=== PATIENT | male | born 1985 | race Two or more races ===

== ENCOUNTER 2019-05-07 11:43 | Emergency (ER) | payer SELFPAY ==
[~2019-05-07] VITALS: Ht 167.6 cm; Wt 81.6 kg
--- NOTE | 2019-05-07 12:00 | NUR ---
came to er complaints of sever flank pain x 2 days hx of lidney stone
[2019-05-07 12:15] VITALS: BP 122/76
[2019-05-07] MEDS ORDERED: Ketorolac 30mg Inj IV ONE (12:15)
[2019-05-07 12:17] LABS: APPEARANCE,URINE CLEAR; BILIRUBIN, URINE NEGATIVE (NEGATIVE); COLOR,URINE PALE YELLOW; GLUCOSE, URINE (UA) 4+ (NEGATIVE); KETONES,URINE NEGATIVE (NEGATIVE); LEUKOCYTE ESTERASE ,URINE NEGATIVE (NEGATIVE); NITRITE,URINE NEGATIVE (NEGATIVE); PH,URINE 8 (4.5-8.0); PROTEIN,URINE NEGATIVE (NEGATIVE); UROBILINOGEN,URINE NORMAL MG/DL (0.0-1.0)
[2019-05-07 12:19] LABS: BASOPHILS % (AUTO) 3.1 % (0.0-2.0); EOSINOPHILS % (AUTO) 0.8 % (0.0-3.0); HEMATOCRIT 38.5 % (42.0-52.0); HEMOGLOBIN 12.3 G/DL (14.2-18.0); LYMPHOCYTES % (AUTO) 40.1 % (20.0-45.0); MEAN CORPUSCULAR VOLUME 88 FL (80-99); MONOCYTES % (AUTO) 7.3 % (1.0-10.0); NEUTROPHILS % (AUTO) 48.6 % (45.0-75.0); PLATELET COUNT 416 K/UL (150-450); RED BLOOD COUNT 4.36 M/UL (4.70-6.10); RED CELL DISTRIBUTION WIDTH 15.8 % (11.6-14.8); WHITE BLOOD COUNT 6.1 K/UL (4.8-10.8)
--- NOTE | 2019-05-07 12:20 | NUR ---
meds given as orderd
[2019-05-07 12:30] LABS: ANION GAP 9 mmol/L (5-15); BLOOD UREA NITROGEN 6 mg/dL (7-18); CALCIUM 8.8 MG/DL (8.5-10.1); CARBON DIOXIDE 26 MMOL/L (21-32); CHLORIDE 102 MMOL/L (98-107); CREATININE 0.9 MG/DL (0.55-1.30); POTASSIUM 3.7 MMOL/L (3.5-5.1); SODIUM 137 MMOL/L (136-145)
--- NOTE | 2019-05-07 12:30 | NUR ---
ED Nurse Note: received pt. pt lying in bed comfortably. intermittent facial grimacing noted. pt walked in to ED due to right flank pain for 2 days with blood in urine. hx of kidney stone. AAO x4. respirations even and non-labored noted. skin warm to touch. no open wound noted. on cardiac cath technician. will wait for the further order.
[2019-05-07 12:33] LABS: ALANINE AMINOTRANSFERASE 79 U/L (12-78); ALBUMIN 3.7 G/DL (3.4-5.0); ALBUMIN/GLOBULIN RATIO 1.1 (1.0-2.7); ALKALINE PHOSPHATASE 132 U/L (46-116); ASPARTATE AMINO TRANSFERASE 40 U/L (15-37); BILIRUBIN,TOTAL 0.2 MG/DL (0.2-1.0)
[2019-05-07 13:00] VITALS: BP 119/77
--- NOTE | 2019-05-07 13:30 | NUR ---
ED Nurse Note: pt c/o pain wants more pain meds. Dr. Williamson notified. will wait for the further order.
[2019-05-07 14:00] VITALS: BP 130/89
[2019-05-07] MEDS ORDERED: Morphine Sulfate 4mg/ml Inj (IV USE ONLY) IVP ONE (14:00)
[2019-05-07] MEDS ORDERED: HYDROcodone/Acetamin 5/325 tab ORAL ONE ×2 (14:00→17:30)
--- NOTE | 2019-05-07 14:49 | NUR ---
ED Nurse Note: pt requested ativan. per pt, " I am shaking, I am having withdraw sx." per pt, alcohol abuse and last drink was yesterday. Dr. Williamson notified.
[2019-05-07] MEDS ORDERED: METFORMIN HCL500 M1 ORAL (15:41)
[2019-05-07] MEDS ORDERED: GLIPIZIDE5 MG ORAL (15:41)
--- NOTE | 2019-05-07 15:44 | Emergency Room Report ---
History of Present Illness General Chief Complaint: Abdominal Pain Source: Patient Present Illness [facility] This patient complains of right-sided flank and abdominal pain for the past 4 hours. He states he also noted hematuria. He believes he has a kidney stone. He states he has them in the past and usually needs Dilaudid. He denies fever chills. He denies nausea and vomiting. He has no other complaints. Allergies: Coded Allergies: No Known Allergies (Unverified , 05/07/19) Patient History Past Medical History: DM Social History: Denies: smoking, alcohol use, drug use Reviewed Nursing Documentation: PMH: Agreed; PSxH: Agreed Nursing Documentation-PMH Hx Diabetes: Yes Review of Systems All Other Systems: negative except mentioned in HPI Physical Exam Vital Signs Date Time Temp Pulse Resp B/P (MAP) Pulse Ox O2 Delivery O2 Flow Rate FiO2 05/07/19 11:56 98.1 86 16 150/80 (103) 98 Room Air Sp02 EP Interpretation: reviewed, normal General Appearance: no apparent distress, alert, GCS 15, non-toxic Head: normocephalic, atraumatic Eyes: bilateral eye normal inspection, bilateral eye PERRL ENT: hearing grossly normal, normal pharynx, no angioedema, normal voice Neck: full range of motion, supple/symm/no masses Respiratory: chest non-tender, lungs clear, normal breath sounds, no respiratory distress, no retraction, no accessory muscle use, speaking full sentences Cardiovascular #1: regular rate, rhythm, no edema Gastrointestinal: normal bowel sounds, soft, non-distended, no guarding, no rebound, tenderness - TTP in the RLQ Rectal: deferred Musculoskeletal: back normal, gait/station normal, normal range of motion, non- tender Neurologic: alert, oriented x3, responsive, motor strength/tone normal, sensory intact, speech normal Psychiatric: judgement/insight normal, memory normal, mood/affect normal, no suicidal/homicidal ideation Skin: no rash, normal color Medical Decision Making Diagnostic Impression: Primary Impression: Hyperglycemia Additional Impression: Uncontrolled diabetes mellitus Laboratory Tests Test 05/07/19 12:00 White Blood Count 6.1 K/UL (4.8-10.8) Red Blood Count 4.36 M/UL (4.70-6.10) L Hemoglobin 12.3 G/DL (14.2-18.0) L Hematocrit 38.5 % (42.0-52.0) L Mean Corpuscular Volume 88 FL (80-99) Mean Corpuscular Hemoglobin 28.3 PG (27.0-31.0) Mean Corpuscular Hemoglobin Concent 32.1 G/DL (32.0-36.0) Red Cell Distribution Width 15.8 % (11.6-14.8) H Platelet Count 416 K/UL (150-450) Mean Platelet Volume 5.3 FL (6.5-10.1) L Neutrophils (%) (Auto) 48.6 % (45.0-75.0) Lymphocytes (%) (Auto) 40.1 % (20.0-45.0) Monocytes (%) (Auto) 7.3 % (1.0-10.0) Eosinophils (%) (Auto) 0.8 % (0.0-3.0) Basophils (%) (Auto) 3.1 % (0.0-2.0) H Urine Color Pale yellow Urine Appearance Clear Urine pH 8 (4.5-8.0) Urine Specific [place] 1.015 (1.005-1.035) Urine Protein Negative (NEGATIVE) Urine Glucose (UA) 4+ (NEGATIVE) H Urine Ketones Negative (NEGATIVE) Urine Blood Negative (NEGATIVE) Urine Nitrite Negative (NEGATIVE) Urine Bilirubin Negative (NEGATIVE) Urine Urobilinogen Normal MG/DL (0.0-1.0) Urine Leukocyte Esterase Negative (NEGATIVE) Sodium Level 137 MMOL/L (136-145) Potassium Level 3.7 MMOL/L (3.5-5.1) Chloride Level 102 MMOL/L (98-107) Carbon Dioxide Level 26 MMOL/L (21-32) Anion Gap 9 mmol/L (5-15) Blood Urea Nitrogen 6 mg/dL (7-18) L Creatinine 0.9 MG/DL (0.55-1.30) Estimate Glomerular Filtration Rate > 60 mL/min (>60) Glucose Level 474 MG/DL (74-106) H Calcium Level 8.8 MG/DL (8.5-10.1) Total Bilirubin 0.2 MG/DL (0.2-1.0) Aspartate Amino Transferase (AST) 40 U/L (15-37) H Alanine Aminotransferase (ALT) 79 U/L (12-78) H Alkaline Phosphatase 132 U/L (46-116) H Total Protein 7.2 G/DL (6.4-8.2) Albumin 3.7 G/DL (3.4-5.0) Globulin 3.5 g/dL Albumin/Globulin Ratio 1.1 (1.0-2.7) CT/MRI/US Diagnostic Results CT/MRI/US Diagnostic Results : Imaging Test Ordered: CT abd/pelvis Last Vital Signs Date Time Temp Pulse Resp B/P (MAP) Pulse Ox O2 Delivery O2 Flow Rate FiO2 05/07/19 14:00 98.6 96 17 130/89 99 Room Air Referrals: NON PHYSICIAN (PCP) Eloisa Williamson DO May 07, 2019 15:44
[2019-05-07 16:00] VITALS: BP 135/92
--- NOTE | 2019-05-07 16:55 | Diagnostic Imaging Report ---
Indication: Severe flank pain x2 days Technique: Spiral acquisitions obtained through the abdomen and pelvis. No oral or IV contrast utilized, per urinary stone protocol. Multiplanar reconstructions were generated. Total dose length product 837.89 mGycm. CTDIvol(s) 15.03 mGy. Dose reduction achieved using automated exposure control Comparison: none Findings: Multiple intrarenal calyceal calculi are demonstrated bilaterally, largest on the right measuring 3 mm diameter, largest on the left measuring 2 mm diameter. No ureteral calculi or hydronephrosis. Lack of IV contrast limits assessment of the renal parenchyma. No gross renal parenchymal mass or cyst demonstrated. The bladder is nondistended, unremarkable. Lack of IV contrast limits assessment of the other solid organs. The liver, gallbladder, bile ducts, pancreas, spleen, adrenals are unremarkable. No retroperitoneal or mesenteric mass or adenopathy. No pelvic mass or adenopathy. There is colonic diverticulosis. No evidence of acute diverticulitis. The appendix is normal. No small bowel distention. No free or loculated intraperitoneal gas or fluid is evident. The distal esophagus, stomach, duodenum are unremarkable. The included lung bases are clear. The bones are unremarkable. Impression: Bilateral nonobstructive intrarenal calculi. No evidence of ureteral calculus, hydronephrosis, or hydroureter No other acute abnormality demonstrated Colonic diverticulosis. No evidence of diverticulitis. The CT scanner at [facility] is accredited by the [employer] and the scans are performed using protocols designed to limit radiation exposure to as low as reasonably achievable to attain images of sufficient resolution adequate for diagnostic evaluation.
--- NOTE | 2019-05-07 17:19 | Emergency Room Report ---
Physical Exam Vital Signs Date Time Temp Pulse Resp B/P (MAP) Pulse Ox O2 Delivery O2 Flow Rate FiO2 05/07/19 11:56 98.1 86 16 150/80 (103) 98 Room Air Medical Decision Making Diagnostic Impression: Primary Impression: Hyperglycemia Additional Impressions: Uncontrolled diabetes mellitus Flank pain ER Course Briefly, this is a 33-year-old male presenting today for evaluation of right- sided flank pain. He has a history of kidney stones in the past and at the time of signout we are awaiting CT scan. Lab work is otherwise within normal limits. Blood sugar was initially elevated and the patient states he has not been taking his glycemic control medications for 3 days but does have plenty of them at home. He was given IV fluids and sugars are coming down. CT scan is now completed and shows no obstructing kidney stone or other pathology. There is diverticulosis without diverticulitis noted as well as bilateral renal calculi but no evidence of obstruction or hydronephrosis. The patient may have passed a stone already and is experiencing some biliary colic. He can be discharged home with NSAIDs and follow-up with PMD or the clinics listed in his discharge paperwork. He was strongly urged to return to his diabetic medication regimen. Family is coming to pick him up. He understands and agrees with the treatment plan was discharged home. Last Vital Signs Date Time Temp Pulse Resp B/P (MAP) Pulse Ox O2 Delivery O2 Flow Rate FiO2 05/07/19 14:00 98.6 96 17 130/89 99 Room Air Disposition: HOME, SELF-CARE Condition: Improved Scripts Ibuprofen* (MOTRIN*) 600 Mg Tablet 600 MG ORAL Q6H PRN for For Pain, #50 TAB 0 Refills Prov: Pavel Presley MD 05/07/19 Referrals: NON PHYSICIAN (PCP) Pavel Presley MD May 07, 2019 17:19
[2019-05-07] MEDS ORDERED: IBUPROFEN600 MG ORAL (17:21)
[2019-05-07 17:28] VITALS: BP 138/96
--- NOTE | 2019-05-07 17:28 | NUR ---
ER DISCHARGE NOTE: Patient is cleared to be discharged per ERMD with family member, pt is aox4, on room air, with stable vital signs. pt was given dc and prescription instructions, pt was able to verbalize understanding, pt id band and iv site removed without complications. pt is able to ambulate with steady gait. pt took all belongings.
== END 2019-05-07 17:28 | disposition home or self-care (01) ==
LOC: EMR 13:57
DX: E11.65 Type 2 diabetes mellitus with hyperglycemia (principal); R10.9 Unspecified abdominal pain; R31.9 Hematuria, unspecified; Z87.442 Personal history of urinary calculi
CPT/HCPCS: 36415; 74176; 80053; 81003; 82962; 85025; 96361; 96374; 96375; 99284; J1885; J2270